=== PATIENT | male | born 1990 | race Caucasian/White ===

== ENCOUNTER 2021-02-15 00:59 | Emergency (ER) | payer OTHER, SELFPAY ==
--- NOTE | ~2021-02-15 | XR_ITS ---
XR hand LT min 3V DATE: 02/15/2021 01:34 INDICATION: Altercation. Left first metacarpal phalangeal joint pain TECHNIQUE: 3 views COMPARISON: 02/04/2014 left hand FINDINGS: No fracture or dislocation, periosteal reaction or bone destruction, erosive change or gio drocalcinosis. IMPRESSION: No significant abnormality Reviewed, dictated and finalized at location A. IMPRESSION: No significant abnormality
[2021-02-15 01:12] VITALS: BP 129/89; PULSE 96; RESP 18; TEMP 37; O2SAT 98
[2021-02-15 03:00] VITALS: BP 120/71; PULSE 69; RESP 12; O2SAT 100
[2021-02-15 04:17] VITALS: BP 125/97; PULSE 59; RESP 14; O2SAT 100
--- NOTE | 2021-02-15 04:56 | ED.UPPEXIN ---
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 Patient states he injured his left thumb trying to arrest an individual. PAtient is located to palmar aspect of his thumb. He has not swelling or bruising. Describes pain as ache. Related Data Allergies Allergy/AdvReac Type Severity Reaction Status Date / Time erythromycin base Allergy Mild Rash Unverified 02/15/21 01:15 azithromycin Allergy Unknown Rash Verified 02/15/21 01:15 Review of Systems Review of Systems: All systems reviewed & are unremarkable except as noted in HPI and below PMFSH Past Medical History Medical History (Updated 02/15/21 @ 05:01 by Maria Luisa Amaya MD) Patient denies medical problems Family History Family History (Updated 04/15/17 @ 16:30 by DOCTOR UNKNOWN) Father Diabetes mellitus Social History Social History Smoking status: Never smoker Alcohol intake: current Gender identity (if verbalized by the patient): Male Sexual Orientation (if Verbalized by the Patient): Straight or Heterosexual Exam Const: General: alert Orientation/consciousness: patient oriented x3 Eyes: EOM: EOMs intact bilaterally Resp: Effort & Inspection: normal respiratory effort Neuro: General: patient oriented x3, moves all extremities and CN's II-XI intact bilaterally Extrem: General: normal to inspection Other: no snuff box tenderness, no swelling, no deformity , no bruising Psych: Mental Status: mental status grossly normal Affect: normal affect Course Reevaluation(s) Reevaluation #1: I discussed with patient preliminary xray did not show fracture or dislocation. If discrepancy he will be notified. Date: 02/15/21 Time: 04:59 Vital Signs Vital signs: Vital Signs Temperature 98.6 F 02/15/21 01:12 Pulse Rate 96 02/15/21 01:12 Respiratory Rate 18 02/15/21 01:12 Blood Pressure 129/89 02/15/21 01:12 Pulse Oximetry 98 02/15/21 01:12 Temperature 98.6 F 02/15/21 01:12 Pulse Rate 59 L 02/15/21 04:17 Respiratory Rate 14 02/15/21 04:17 Blood Pressure 125/97 H 02/15/21 04:17 Pulse Oximetry 100 02/15/21 04:17 MDM - Extremity Injury (Upper) Imaging Data Attestation: I personally reviewed and interpreted this imaging study as follows: My impression: left hand xray- no fracture no dislocation Radiologist's impression: l Discharge Plan Discharge Clinical Impression: Left thumb sprain Qualifiers: Encounter type: initial encounter Sprain of finger site: metacarpophalangeal joint Qualified Code(s): S63.642A - Sprain of metacarpophalangeal joint of left thumb, initial encounter Patient Disposition: Home, Self-Care Condition: Stable Instructions: Antibiotic Form, Finger Sprain (ED) Prescriptions: New ibuprofen 600 mg tablet 600 mg PO TID PRN (Reason: pain) Qty: 14 RF: 0 Follow-up/Referrals: PHYSICIAN,RELAY ENGINEER [Primary Care Provider] - Isreal Roberts MD [Physician] -
== END 2021-02-15 05:06 | disposition home or self-care (01) ==
PROVIDERS: Emergency Provider General Practice
DX: S63.602A Unspecified sprain of left thumb, initial encounter (principal); X58.XXXA Exposure to other specified factors, initial encounter; Y99.0 Civilian activity done for income or pay
CPT/HCPCS: 73130; 99283

== ENCOUNTER → 2021-12-11 11:23 | Outpatient (CLI) | payer OTHER, SELFPAY ==
--- NOTE | ~2021-12-11 | XR_ITS ---
EXAM: XR thoracic spine 3V DATE: 12/11/2021 11:41 HISTORY: Pain in thoracic spine/x 10 years post injury . COMPARISON: 03/15/2013. FINDINGS: Vertebral body alignment intact. Stable mild anterior wedge deformity of 2 mid thoracic ve rtebral bodies, vertebral body heights otherwise maintained. No disc space narrowing. No traumatic ma lalignment or fracture. Visualized lung parenchyma is clear. IMPRESSION: No acute osseous finding in the thoracic spine. Reviewed, dictated and finalized at location K.
== END ==
PROVIDERS: PCP Nurse Practitioner Family; Visit Provider Nurse Practitioner Family
DX: M54.6 Pain in thoracic spine (principal)
CPT/HCPCS: 72072

== ENCOUNTER 2022-11-03 11:13 | Emergency (ER) | payer OTHER, SELFPAY ==
--- NOTE | ~2022-11-03 | XR_ITS ---
EXAMINATION: XR foot RT min 3V DATE: 11/03/2022 12:04 INDICATION: Nontraumatic plantar right foot pain. TECHNIQUE: Dorsoplantar, two oblique and lateral views of the right foot were obtained. COMPARISON: None. FINDINGS: Alignment is normal. No fracture. Joint spaces are normal. Soft tissues are unremarkable. IMPRESSION: 1. Negative right foot radiographs. Reviewed, dictated and finalized at location A.
[2022-11-03 11:25] VITALS: BP 107/69; PULSE 58; RESP 16; TEMP 36.2; O2SAT 100
--- NOTE | 2022-11-03 11:44 | ED.GENADULT ---
HPI - General Adult General Chief complaint: Extremity Injury, Lower Stated complaint: rt foot injury Time Seen by Provider: 11/03/22 11:40 Source: patient, family, RN notes reviewed and old records reviewed Mode of arrival: ambulatory Limitations: no limitations History of Present Illness HPI narrative: 32 year old male accompanied by spouse presents to express care with complaints of pain to his right foot mainly in the ball of his foot since yesterday after working in his yard. Patient denies any known injury to his right foot, reports that pain is mainly under great toe and 2nd toe of right foot, no redness, bruising or swelling noted. Patient reports that when he flexes and extends his foot it makes pain worse. Patient does wear steel toed shoes at work. Patient is wearing crocs to right foot and normal boot to left foot and is able to bear weight on right foot. patient has not taken any medications for his discomfort. MD complaint: pain ball of right foot Onset (ago): day(s) (since yesterday) Related Data Allergies Allergy/AdvReac Type Severity Reaction Status Date / Time erythromycin base Allergy Mild Rash Verified 11/03/22 11:49 azithromycin Allergy Unknown Rash Verified 11/03/22 11:36 Review of Systems Review of Systems: CONSTITUTIONAL: Denies fever, chills, or sweats. EYES: Denies visual changes, redness, or discharge. ENT: Denies rhinorrhea, congestion, sore throat, or otalgia. CARDIOVASCULAR: Denies chest pain, palpitations, or edema. RESPIRATORY: Denies cough or dyspnea. GASTROINTESTINAL: Denies abdominal pain, nausea, vomiting, or diarrhea. GENITOURINARY: Denies dysuria or hematuria. SKIN: Denies rash or itching. MUSCULOSKELETAL: Denies back pain, positive for pain to the ball of his right foot, or myalgia. NEUROLOGIC: Denies headache, numbness, or weakness. PSYCHIATRIC: Denies anxiety or depression. All systems reviewed & are unremarkable except as noted in HPI and below PMFSH Past Medical History Medical History BMI 26.0-26.9,adult Encounter to establish care Heart murmur Pain in thoracic spine Patient denies medical problems Surgical History Surgical History History of placement of ear tubes Hx of sinus surgery Family History Family History Father Diabetes mellitus Grandparent Diabetes mellitus Social History Social History Smoking status: Never smoker Alcohol intake: current Substance use: never Gender identity (if verbalized by the patient): Male Sexual Orientation (if Verbalized by the Patient): Straight or Heterosexual Comments At time of signature, agree with nursing past medical, surgical, social and family history. There is no relevant family history pertinent to the presenting complaint Exam Narrative: GENERAL: Well-appearing, well-nourished, and in no acute distress. HEAD: Normocephalic, atraumatic. EYES: PERRLA and EOMI. ENT: Nares clear, no rhinorrhea or epistaxis. Mucous membranes moist. NECK: Supple.no lymphadenopathy CHEST: Clear to auscultation. No respiratory distress.sao2 100% on room air HEART: Regular rate and rhythm. No murmur heard. Normal peripheral pulses. ABDOMEN: Soft, nontender, nondistended, normal active bowel sounds. EXTREMITIES: Normal range of motion. No edema. Pain on palpation to the right foot at the ball of foot under right great toe and 2nd toe, increased pain with flexion and extension of foot, strong right pedal pulse, foot warm and pink with sensation intact. No redness swelling or bruising of right foot pain with palpation on the ball of foot. SKIN: Warm, dry, no rash. NEURO: No focal deficits. Alert and oriented x3. Course Course Emergency Course: Patient is aware of diagnosis, understands and agrees to treatment raman
== END 2022-11-03 12:33 | disposition home or self-care (01) ==
PROVIDERS: Emergency Provider Registered Nurse; PCP Family Medicine
DX: M79.671 Pain in right foot (principal); R01.1 Cardiac murmur, unspecified
CPT/HCPCS: 73630; 99213; G0463

== ENCOUNTER 2023-08-12 13:18 | Emergency (ER) | payer OTHER, SELFPAY ==
[2023-08-12 13:27] VITALS: BP 114/68; PULSE 67; RESP 16; TEMP 36.6; O2SAT 99
--- NOTE | 2023-08-12 13:35 | ED.WOUNDLAC ---
HPI - Wound/Laceration General Chief Complaint: Wound/Laceration Stated Complaint: Left Thumb Injury Time Seen by Provider: 08/12/23 13:37 Source: patient Mode of arrival: ambulatory Limitations: no limitations History of Present Illness HPI narrative: 33 y/o male presented for c/o laceration to left thumb sustained today. States he was using a drill in the right hand, holding a bracket with the left hand, when the bracket spun and sliced the thumb. 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 Denies numbness, tingling or weakness of then thumb, denies decreased ROM. Tetanus utd. Patient is right-hand dominant. Related Data Allergies Allergy/AdvReac Type Severity Reaction Status Date / Time erythromycin base Allergy Mild Rash Verified 08/12/23 14:09 azithromycin Allergy Unknown Rash Verified 08/12/23 14:09 Review of Systems Review of Systems: CONSTITUTIONAL: Denies body aches, fever, chills CARDIOVASCULAR: Denies chest pain, palpitations, or edema. RESPIRATORY: Denies cough or dyspnea. SKIN: Reports left thumb laceration MUSCULOSKELETAL: Denies back pain, joint pain, or myalgia. NEUROLOGIC: Denies headache, numbness, tingling, or weakness. All systems reviewed & are unremarkable except as noted in HPI and below PMFSH Past Medical History Medical History BMI 25.0-25.9,adult BMI 26.0-26.9,adult Elevated liver enzymes Encounter for wellness examination Encounter to establish care Heart murmur Left otitis media Pain in thoracic spine Patient denies medical problems Surgical History Surgical History History of placement of ear tubes Hx of sinus surgery Family History Family History Father Diabetes mellitus Grandparent Diabetes mellitus Social History Social History Smoking status: Never smoker Alcohol intake: current Substance use: never Substance use type: does not use Gender identity (if verbalized by the patient): Male Sexual Orientation (if Verbalized by the Patient): Straight or Heterosexual Comments At time of signature, I have reviewed and agree with nursing past medical, surgical, social and family history unless otherwise noted. Please see nursing chart for further information. There is no relevant family history pertinent to the presenting complaint Exam Narrative: GENERAL: Well-appearing, well-nourished, and in no acute distress. CHEST: Speaks in full sentences. No respiratory distress. HEART: Regular rate and rhythm. Normal and equal peripheral pulses. EXTREMITIES: Left thumb deep U-shaped laceration approx [id number] noted to palmar aspect of proximal phalanx. No tendon involvement. Small amount active bleeding. Thumb has normal strength and sensation, normal range of motion. No edema or ecchymosis, alignment normal, pulse palpable and equal bilaterally, skin warm, dry, pink. Capillary refill less than 3 seconds. NEURO: Alert and oriented x3. Extrem: Hand/finger images: 1. area of deep flap laceration Course Course Emergency Course: Patient is aware of diagnosis, understands and agrees to treatment plan. Anticipatory guidance given. Patient agrees to follow-up as directed and is aware of reasons to seek care at the emergency department. Portions of this record may have been created with voice recognition software Level of Care: Express Care Visit Vital Signs Vital signs: Vital Signs Temperature 97.9 F 08/12/23 13:27 Pulse Rate 67 08/12/23 13:27 Respiratory Rate 16 08/12/23 13:27 Blood Pressure 114/68 08/12/23 13:27 Pulse Oximetry 99 08/12/23 13:27 Oxygen Delivery Room Air 08/12/23 13:27 Temperature 97.9 F 08/12/23 13:27 Pulse Rate 67 08/12/23 13:27 Respiratory Rate 16 08/12/23
== END 2023-08-12 14:57 | disposition home or self-care (01) ==
PROVIDERS: Emergency Provider Nurse Practitioner Family; PCP Nurse Practitioner Family
DX: S61.012A Laceration without foreign body of left thumb without damage to nail, initial encounter (principal); W29.8XXA Contact with other powered hand tools and household machinery, initial encounter
CPT/HCPCS: 12002; 99213; G0463